=== PATIENT | male | born 1990 | race Caucasian/White ===

== ENCOUNTER 2020-01-26 14:40 | Emergency (ER) | payer OTHER ==
[2020-01-26 14:51] VITALS: BP 136/52; PULSE 77; TEMP 98.1; BMI 37.5
--- NOTE | 2020-01-26 15:29 | PDOC ---
History of Present Illness - General Chief Complaint: Hemorrhoids Stated Complaint: PAIN Time Seen by Provider: 01/26/20 14:53 - History of Present Illness Initial Comments: 01/26/20 15:26 29-year-old male with rectal irritation x1 day no systemic symptoms Past History - Past Medical History Allergies/Adverse Reactions: Allergies Allergy/AdvReac Type Severity Reaction Status Date / Time No Known Allergies Allergy Verified 01/26/20 14:51 Home Medications: Ambulatory Orders Cephalexin [Keflex] 500 mg PO QID #40 capsule 01/26/20 Docusate Sodium [Colace] 100 mg PO BID #30 capsule 01/26/20 Pantoprazole Sodium 40 mg PO DAILY 01/26/20 Sulfamethoxazole/Trimethoprim [Bactrim Ds -] 1 tab PO BID #14 tablet 01/26/20 COPD: No GI Disorders: Yes (aacid reflux) Other medical history: hemmorrhoids - Surgical History Abdominal Surgery: Yes (sleeve) - Psycho Social/Smoking Cessation Hx Smoking History: Never smoked Hx Alcohol Use: No Drug/Substance Use Hx: No Review of Systems - Review of Systems ABD/GI: Yes: See HPI *Physical Exam - Vital Signs Last Vital Signs Temp Pulse Resp BP Pulse Ox 98.1 F 77 14 136/52 L 99 01/26/20 14:46 01/26/20 14:46 01/26/20 14:46 01/26/20 14:46 01/26/20 14:46 - Physical Exam 01/26/20 15:27 Mild erythema tenderness and firmness without fluctuance there is warmth at the 9 o'clock position with a purulent center. Medical Decision Making - Medical Decision Making 01/26/20 15:28 Perirectal abscess Bactrim and Keflex follow-up with general surgery warm sits baths I have reviewed the pathophysiology with the patient. They are in agreement with the treatment plan all questions were answered to their satisfaction. Understanding for follow-up without fail was also conveyed to the patient. Again they are in agreement. Discharge - Discharge Information Problems reviewed: Yes Clinical Impression/Diagnosis: Perirectal abscess Condition: Stable Disposition: HOME - Admission No - Follow up/Referral Referrals: Phuc Spence MD [Primary Care Provider] - Wood Clemente MD [Staff Physician] - - Patient Discharge Instructions Additional Instructions: Please take the antibiotics as directed. Use the stool softener as directed. Warm sits baths as discussed. Return to the emergency room for worsening symptoms and without fail follow-up with general surgery in 2 to 3 days for further evaluation and treatment options. - Post Discharge Activity
== END 2020-01-26 15:45 | disposition home or self-care (01) ==
LOC: JERFT 14:40
DX: K61.1 Rectal abscess (principal); K21.9 Gastro-esophageal reflux disease without esophagitis
CPT/HCPCS: 99281-25